=== PATIENT | male | born 1965 | race Two or more races ===

== ENCOUNTER 2018-09-18 00:33 | Inpatient (IN) | payer MEDICAID, OTHER ==
[~2018-09-18] VITALS: Ht 177.8 cm; Wt 67.6 kg
[~2018-09-18 00:33] MED LIST: SITA1TAB4
[2018-09-18] MEDS ORDERED: IBUPROFEN 600MG TABLET PO STA (04:31)
[2018-09-18] MEDS ORDERED: ACETAMINOPHEN 325MG TABLET PO ONE (04:45)
[2018-09-18 05:43] LABS: CHLORIDE 102 mEq/L (98-107)
[2018-09-18 05:45] LABS: BASOPHILS % 0.5 % (0.0-2.0); EOSINOPHILS % 0.6 % (0.0-5.0); HEMATOCRIT. 37.6 % (42.0-52.0); HEMOGLOBIN. 12.9 g/dL (14.0-18.0); LYMPHOCYTES % 17.2 % (20.0-50.0); MEAN CORPUSCULAR HEMOGLOBIN 30.2 pg (28.0-32.0); MEAN CORPUSCULAR VOLUME 87.6 fL (80.0-94.0); MEAN PLATELET VOLUME 8.2 fl (7.4-10.4); MONOCYTES % 8.5 % (2.0-8.0); NEUTROPHILS % 73.2 % (40.0-76.0); PLATELET 224 x1000/uL (130-400); RED BLOOD CELL COUNT 4.29 mill/uL (4.7-6.1); RED CELL DISTRIBUTION WIDTH 13.4 % (11.6-14.6)
[2018-09-18 05:45] LABS: CLARITY URINE CLEAR (CLEAR); COLOR URINE YELLOW (YELLOW); KETONES URINE NEGATIVE (NEGATIVE); LEUKOCYTE ESTERASE URINE NEGATIVE (NEGATIVE); NITRITE URINE NEGATIVE (NEGATIVE); OCCULT BLOOD URINE NEGATIVE (NEGATIVE); PROTEIN URINE 2+ (NEGATIVE); SPECIFIC GRAVITY URINE 1.046 (1.005-1.030)
[2018-09-18 06:13] LABS: *AMPHETAMINES SCREEN URINE PRESUMTIVE POSITIVE (NEGATIVE); *BARBITURATES SCREEN URINE NEGATIVE (NEGATIVE); *BENZODIAZEPINES SCREEN URINE NEGATIVE (NEGATIVE); *COCAINE SCREEN URINE NEGATIVE (NEGATIVE); METHADONE URINE SCREEN NEGATIVE (NEGATIVE); OPIATES URINE SCREEN NEGATIVE (NEGATIVE)
[2018-09-18 06:14] LABS: CANNABINOID URINE SCREEN NEGATIVE (NEGATIVE); PHENCYCLIDINE URINE SCREEN NEGATIVE (NEGATIVE)
[2018-09-18] MEDS ORDERED: IBUPROFEN 600MG TABLET PO PRN (14:15)
[2018-09-18] MEDS ORDERED: PIPERACILLIN/TAZ 3.375G PREMIX 50 ML IV ONE (14:30)
[2018-09-18] MEDS ORDERED: VANCOMYCIN 1 G PREMIX 200 ML IV ONE (14:30)
[2018-09-18] MEDS ORDERED: SODIUM CHLORIDE 0.9% 1,000 ML IV ONE (14:30)
[2018-09-18 17:24] VITALS: BP 156/85
[2018-09-18] MEDS ORDERED: INSU100I28 SQ (17:50)
[2018-09-18] MEDS ORDERED: CLONIDINE 0.1MG TABLET PO PRN (19:00)
[2018-09-18] MEDS ORDERED: ONDANSETRON HCL 4MG/2ML INJ IV PRN (19:00)
[2018-09-18] MEDS ORDERED: ACETAMINOPHEN 325MG TABLET PO PRN (19:00)
[2018-09-18] MEDS ORDERED: IPRATROPIUM/ALBUTEROL 0.5-3(2.5)MG/3ML NEB INH PRN (19:00)
[2018-09-18] MEDS ORDERED: DOCUSATE SODIUM 100MG CAPSULE PO PRN (19:00)
[2018-09-18 20:00] VITALS: BP 124/61
[2018-09-18] MEDS ORDERED: DEXTROSE 50% WATER 50ML SYRINGE IV PRN (22:00)
[2018-09-18] MEDS ORDERED: INSULIN GLARGINE UD 100 UNITS/ML SYR SUBCUT SCH (22:00)
[2018-09-18] MEDS: BLOOD SUGAR DIAGNOSTIC STRIP TEST SCH (23:00)
[2018-09-18] MEDS: INSULIN LISPRO 100 UNITS/ML SUBCUT SCH (23:30)
[2018-09-19] VITALS: BP 136/72
[2018-09-19] MEDS ORDERED: VANCOMYCIN 1 G PREMIX 200 ML IV SCH (02:00)
[2018-09-19] MEDS: SODIUM CHLORIDE 0.9% 1,000 ML IV SCH ×2 (02:46→15:33)
[2018-09-19 04:00] VITALS: BP 134/79
[2018-09-19] MEDS: BLOOD SUGAR DIAGNOSTIC STRIP TEST SCH ×4 (06:54→21:44)
[2018-09-19] MEDS: INSULIN LISPRO 100 UNITS/ML SUBCUT SCH ×5 (07:12→22:25)
[2018-09-19 08:00] VITALS: BP 124/75
[2018-09-19] MEDS: ENOXAPARIN 40MG/0.4ML SYR SUBCUT SCH (08:12)
[2018-09-19] MEDS: VANCOMYCIN 1250MG in DEXTROSE 5% WATER 250ML IV SCH ×2 (10:29→17:07)
[2018-09-19 12:00] VITALS: BP 117/73
[2018-09-19 16:00] VITALS: BP 127/74
[2018-09-19 20:00] VITALS: BP 132/75
[2018-09-19] MEDS: INSULIN GLARGINE UD 100 UNITS/ML SYR SUBCUT SCH (22:02)
[2018-09-20] VITALS: BP 116/71
[2018-09-20] MEDS: VANCOMYCIN 1250MG in DEXTROSE 5% WATER 250ML IV SCH ×3 (02:12→17:36)
[2018-09-20 04:00] VITALS: BP 130/65
[2018-09-20] MEDS: BLOOD SUGAR DIAGNOSTIC STRIP TEST SCH ×4 (07:13→21:00)
[2018-09-20 08:00] VITALS: BP 123/72
[2018-09-20] MEDS: ENOXAPARIN 40MG/0.4ML SYR SUBCUT SCH (08:25)
[2018-09-20] MEDS: INSULIN LISPRO 100 UNITS/ML SUBCUT SCH ×7 (08:26→21:00)
[2018-09-20 12:00] VITALS: BP 124/65
[2018-09-20] MEDS: LEVOFLOXACIN 750MG PREMIX 150 ML IV SCH (15:42)
[2018-09-20 16:00] VITALS: BP 136/76
[2018-09-20 20:00] VITALS: BP 123/65
[2018-09-20] MEDS: INSULIN GLARGINE UD 100 UNITS/ML SYR SUBCUT SCH (22:05)
[2018-09-21] VITALS: BP_SYST 105; BP_SYST 124; BP_DIAS 67; BP_DIAS 87
[2018-09-21] MEDS: VANCOMYCIN 1250MG in DEXTROSE 5% WATER 250ML IV SCH ×3 (02:41→18:25)
[2018-09-21 04:00] VITALS: BP 125/68
[2018-09-21] MEDS: INSULIN LISPRO 100 UNITS/ML SUBCUT SCH ×7 (07:20→21:16)
[2018-09-21] MEDS: BLOOD SUGAR DIAGNOSTIC STRIP TEST SCH ×4 (07:45→21:05)
[2018-09-21] MEDS: ENOXAPARIN 40MG/0.4ML SYR SUBCUT SCH (09:00)
[2018-09-21] MEDS ORDERED: LIDOCAINE HCL 1% 20ML VIAL (Pyxis) INJ ONE (10:58)
[2018-09-21] MEDS ORDERED: DEXAMETHASONE 4MG/ML 1ML VIAL ONE ×2 (10:58→12:34)
[2018-09-21] MEDS ORDERED: BUPIVACAINE HCL/PF 0.5% (5MG/ML) 10ML ONE (10:58)
[2018-09-21] MEDS ORDERED: BACITRACIN 50,000 UNITS/VIAL ONE (10:59)
[2018-09-21] MEDS ORDERED: NORMAL SALINE 0.9% 10 ML SYR ONE (10:59)
[2018-09-21 11:18] VITALS: BP 119/69
[2018-09-21] MEDS ORDERED: MIDAZOLAM HCL 2 MG/2 ML VIAL ONE (12:19)
[2018-09-21] MEDS ORDERED: PROPOFOL 200MG/20ML VIAL IV ONE (12:19)
[2018-09-21] MEDS ORDERED: FENTANYL CITRATE/PF 50MCG/ML 2ML VIAL ONE (12:19)
[2018-09-21] MEDS ORDERED: ONDANSETRON HCL 4MG/2ML INJ IV PRN (12:30)
[2018-09-21] MEDS ORDERED: HYDROMORPHONE HCL/PF 2MG/ML CPJ IV PRN (12:30)
[2018-09-21] MEDS ORDERED: LABETALOL 5MG/ML SYR 20 MG/4 ML SYRINGE IV PRN (12:30)
[2018-09-21] MEDS ORDERED: MEPERIDINE HCL/PF 25MG/ML CPJ IV PRN (12:30)
[2018-09-21] MEDS: SODIUM CHLORIDE 0.9% 1,000 ML IV SCH (13:00)
[2018-09-21] MEDS: LEVOFLOXACIN 750MG PREMIX 150 ML IV SCH (14:36)
[2018-09-21 20:00] VITALS: BP 120/71
[2018-09-21] MEDS: INSULIN GLARGINE UD 100 UNITS/ML SYR SUBCUT SCH (22:34)
[2018-09-22] VITALS: BP 119/61
[2018-09-22] MEDS: SODIUM CHLORIDE 0.9% 1,000 ML IV SCH ×2 (02:06→22:10)
[2018-09-22] MEDS: VANCOMYCIN 1250MG in DEXTROSE 5% WATER 250ML IV SCH ×3 (02:06→21:08)
[2018-09-22 04:00] VITALS: BP 116/63
[2018-09-22] MEDS: BLOOD SUGAR DIAGNOSTIC STRIP TEST SCH ×4 (07:38→21:08)
[2018-09-22 08:00] VITALS: BP 123/71
[2018-09-22] MEDS: ENOXAPARIN 40MG/0.4ML SYR SUBCUT SCH (09:18)
[2018-09-22] MEDS: INSULIN LISPRO 100 UNITS/ML SUBCUT SCH ×7 (09:18→22:00)
[2018-09-22 12:00] VITALS: BP 125/64
[2018-09-22 13:28] LABS: BASOPHILS % 0.4 % (0.0-2.0); EOSINOPHILS % 0.6 % (0.0-5.0); HEMATOCRIT. 35.4 % (42.0-52.0); HEMOGLOBIN. 11.9 g/dL (14.0-18.0); LYMPHOCYTES % 21.2 % (20.0-50.0); MEAN CORPUSCULAR HEMOGLOBIN 29.6 pg (28.0-32.0); MEAN CORPUSCULAR VOLUME 88.3 fL (80.0-94.0); MEAN PLATELET VOLUME 8.1 fl (7.4-10.4); MONOCYTES % 8.1 % (2.0-8.0); NEUTROPHILS % 69.7 % (40.0-76.0); PLATELET 252 x1000/uL (130-400); RED BLOOD CELL COUNT 4.01 mill/uL (4.7-6.1); RED CELL DISTRIBUTION WIDTH 13.2 % (11.6-14.6)
[2018-09-22 13:37] LABS: CHLORIDE 107 mEq/L (98-107)
[2018-09-22 16:00] VITALS: BP 117/64
[2018-09-22] MEDS: LEVOFLOXACIN 750MG PREMIX 150 ML IV SCH (17:01)
[2018-09-22 20:00] VITALS: BP 113/68
[2018-09-22] MEDS: ZOLPIDEM TARTRATE 5MG TABLET PO PRN (21:08)
[2018-09-22] MEDS: INSULIN GLARGINE UD 100 UNITS/ML SYR SUBCUT SCH (22:02)
[2018-09-23 00:09] VITALS: BP 131/69
[2018-09-23 04:00] VITALS: BP 111/69
[2018-09-23] MEDS: VANCOMYCIN 1250MG in DEXTROSE 5% WATER 250ML IV SCH ×2 (04:16→12:00)
[2018-09-23 08:00] VITALS: BP 122/70
[2018-09-23] MEDS: BLOOD SUGAR DIAGNOSTIC STRIP TEST SCH ×4 (08:16→20:17)
[2018-09-23] MEDS: INSULIN LISPRO 100 UNITS/ML SUBCUT SCH ×7 (08:38→20:17)
[2018-09-23] MEDS: ENOXAPARIN 40MG/0.4ML SYR SUBCUT SCH (08:40)
[2018-09-23] MEDS: LEVOFLOXACIN 750MG PREMIX 150 ML IV SCH (15:24)
[2018-09-23 16:00] VITALS: BP 115/63
[2018-09-23 17:26] LABS: CHLORIDE 107 mEq/L (98-107)
[2018-09-23] MEDS: SODIUM CHLORIDE 0.9% 1,000 ML IV SCH (18:27)
[2018-09-23 20:00] VITALS: BP 115/65
[2018-09-23] MEDS: INSULIN GLARGINE UD 100 UNITS/ML SYR SUBCUT SCH (21:28)
[2018-09-23] MEDS: VANCOMYCIN 1 G PREMIX 200 ML IV SCH (22:21)
[2018-09-24] VITALS: BP 119/71
[2018-09-24] MEDS: ZOLPIDEM TARTRATE 5MG TABLET PO PRN (00:24)
[2018-09-24 04:00] VITALS: BP 123/70
[2018-09-24] MEDS: INSULIN LISPRO 100 UNITS/ML SUBCUT SCH ×4 (06:33→12:48)
[2018-09-24] MEDS: BLOOD SUGAR DIAGNOSTIC STRIP TEST SCH ×2 (06:35→12:48)
[2018-09-24] MEDS: VANCOMYCIN 1 G PREMIX 200 ML IV SCH (06:35)
[2018-09-24] MEDS: ENOXAPARIN 40MG/0.4ML SYR SUBCUT SCH (08:41)
[2018-09-24] MEDS: SODIUM CHLORIDE 0.9% 1,000 ML IV SCH (08:48)
[2018-09-24 09:05] VITALS: BP 121/64
[2018-09-24 09:47] VITALS: BP 121/64
[2018-09-24] MEDS ORDERED: LEVOFLOXACIN 250MG TABLET PO SCH (11:00)
[2018-09-24] MEDS ORDERED: ATORVASTATIN CALCIUM 10MG TABLET PO SCH (21:00)
== END 2018-09-24 13:24 | DRG 314 ==
LOC: ER 00:33 → 6EST 14:13 → ENRESERV 15:49 → 6EST 19:38
PROVIDERS: ADMIT Internal Medicine; ATTEND Internal Medicine
PROC: 0QBN0ZZ Excision of Right Metatarsal, Open Approach (ICD-10-PCS; principal; 2018-09-21)
DX: E11.69 Type 2 diabetes mellitus with other specified complication (principal); M86.8X7 Other osteomyelitis, ankle and foot; E43 Unspecified severe protein-calorie malnutrition; E11.621 Type 2 diabetes mellitus with foot ulcer; E11.42 Type 2 diabetes mellitus with diabetic polyneuropathy; L97.519 Non-pressure chronic ulcer of other part of right foot with unspecified severity; E11.65 Type 2 diabetes mellitus with hyperglycemia; L97.529 Non-pressure chronic ulcer of other part of left foot with unspecified severity; F15.10 Other stimulant abuse, uncomplicated; F17.210 Nicotine dependence, cigarettes, uncomplicated; G47.00 Insomnia, unspecified; I10 Essential (primary) hypertension; F19.10 Other psychoactive substance abuse, uncomplicated; L02.611 Cutaneous abscess of right foot; Z59.0 Homelessness; Z68.21 Body mass index [BMI] 21.0-21.9, adult; F14.10 Cocaine abuse, uncomplicated
CPT/HCPCS: 36415; 71045; 73610; 73630; 80048; 80202; 80305; 82962; 83036; 84484; 87070; 87075; 88304; 88311; 93005; 93923; 93970; 96365; 96368; 97116; 97162; 99285; C1893; J1100; J1650; J1815; J1956; J2250; J2405; J2543; J2704; J3010; J3370; J3490; J7030; J7060